=== PATIENT | male | born 1960 | race Two or more races ===

== ENCOUNTER → 2018-11-04 | Day surgery (SDC) | payer OTHER ==
[~2018-11-04] MED LIST: CYCL5TAB14 PO; DIAZ-351 PO; HYDR-4383 PO; IBUP-1984 PO; METH4TAB81 PO; OXYC-134 PO; VIG0.5OS LEFTEYE; gadopentetate dimeglumine 5 mmol/10ml vial IV ONE; iohexol 300 MG/1 ML 10ml vial ONE
== END | disposition home or self-care (01) ==
LOC: RAD 09:51
PROVIDERS: ATTEND Orthopaedic Surgery
DX: S46.012A Strain of muscle(s) and tendon(s) of the rotator cuff of left shoulder, initial encounter (principal); X58.XXXA Exposure to other specified factors, initial encounter; Y93.89 Activity, other specified; Y92.89 Other specified places as the place of occurrence of the external cause; Y99.8 Other external cause status
CPT/HCPCS: 23350; 73222; A9579; Q9967

== ENCOUNTER 2019-03-16 22:22 | Emergency (ER) | payer MEDICAID, OTHER ==
[~2019-03-16] VITALS: Ht 167.6 cm; Wt 81.8 kg
[~2019-03-16 22:22] MED LIST changes: -IBUP-1984 PO; -VIG0.5OS LEFTEYE; -gadopentetate dimeglumine 5 mmol/10ml vial IV ONE; -iohexol 300 MG/1 ML 10ml vial ONE
[2019-03-16 22:54] LABS: BASOPHILS # (AUTO) 0.1 X10'3 (0-0.2); BASOPHILS % (AUTO) 0.8 % (0-1); EOSINOPHILS # (AUTO) 0.6 X10'3 (0-0.9); EOSINOPHILS % (AUTO) 4.2 % (0-6); HEMATOCRIT 45.6 % (42.0-52.0); HEMOGLOBIN 15.2 g/dl (14.0-17.9); LYMPHOCYTES # (AUTO) 3.3 X10'3 (1.1-4.8); LYMPHOCYTES % (AUTO) 23.1 % (21-51); MEAN CORPUSCULAR HEMOGLOBIN 29.2 PG (27.0-31.0); MEAN CORPUSCULAR HGB CONC 33.4 g/dL (33.0-36.5); MEAN CORPUSCULAR VOLUME 87.4 FL (78-98); MEAN PLATELET VOLUME 7.8 FL (7.4-10.4); MONOCYTES # (AUTO) 1.1 X10'3 (0-0.9); MONOCYTES % (AUTO) 7.8 % (2-12); NEUTROPHILS # (AUTO) 9.1 X10'3 (1.8-7.7); NEUTROPHILS % (AUTO) 64.1 % (42-75); PLATELET COUNT 312 X10'3 (140-440); RED BLOOD COUNT 5.21 X10'6 (4.70-6.10); RED CELL DISTRIBUTION WIDTH 13.5 % (11.5-14.5); WHITE BLOOD COUNT 14.2 X10'3 (4.5-11.0)
[2019-03-16] MEDS ORDERED: normal saline 1000ML IV soln IVB ONE (23:00)
[2019-03-16] MEDS ORDERED: morphine 4 MG/ML inj SYRINge IV ONE (23:00)
[2019-03-16] MEDS ORDERED: ondansetron/PF 4mg/2ml inj IV ONE (23:00)
[2019-03-16 23:09] LABS: ALANINE AMINOTRANSFERASE 33 U/L (12-78); ALBUMIN 3.4 G/DL (3.4-5.0); ALKALINE PHOSPHATASE 62 IU/L (46-116); ANION GAP 9 (8-16); ASPARTATE AMINO TRANSFERASE 20 U/L (10-37); BILIRUBIN,TOTAL 0.5 MG/DL (0.1-1.0); BLOOD UREA NITROGEN 18 MG/DL (7-18); BUN/CREATININE RATIO 15.5 (5.4-32.0); CHLORIDE 102 MMOL/L (99-107); CREATININE 1.16 MG/DL (0.60-1.10); GLUCOSE 110 MG/DL (70-104); POTASSIUM 3.4 MMOL/L (3.5-5.1); SODIUM 137 MMOL/L (135-145); TOTAL CARBON DIOXIDE 26.1 MMOL/L (24-32); TOTAL PROTEIN 6.9 G/DL (6.4-8.2); eGFR 65 ML/MIN
[2019-03-16 23:26] VITALS: BP 120/76
[2019-03-17] MEDS ORDERED: CIPR-259 PO (00:05)
[2019-03-17] MEDS ORDERED: LOPE-144 PO (00:05)
[2019-03-17] MEDS ORDERED: METR500T PO (00:05)
[2019-03-17] MEDS ORDERED: HYDR-4353 PO (00:05)
[2019-03-18] MEDS ORDERED: HYDR-4353 PO (06:02)
[2019-03-18] MEDS ORDERED: FAMO-128 PO (06:02)
== END 2019-03-17 00:26 | disposition home or self-care (01) ==
LOC: ER 22:23
DX: K52.9 Noninfective gastroenteritis and colitis, unspecified (principal); I10 Essential (primary) hypertension; Z79.899 Other long term (current) drug therapy
CPT/HCPCS: 36415; 80053; 85025; 85610; 96374; 96375; 99283; J2270; J2405; J7030

== ENCOUNTER 2019-03-18 03:52 | Emergency (ER) | payer MEDICAID ==
[~2019-03-18] VITALS: Ht 167.6 cm; Wt 81.8 kg
[~2019-03-18 03:52] MED LIST changes: +CIPR-259 PO; +HYDR-4353 PO; +LOPE-144 PO; +METR500T PO
[2019-03-18] MEDS ORDERED: ondansetron/PF 4mg/2ml inj IV ONE (04:15)
[2019-03-18] MEDS ORDERED: normal saline 1000ML IV soln IVB ONE (04:15)
[2019-03-18] MEDS ORDERED: famotidine/PF 10 mg/ml inj IV ONE (04:15)
[2019-03-18] MEDS ORDERED: morphine 4 MG/ML inj SYRINge IV ONE (04:15)
[2019-03-18] MEDS ORDERED: iohexol 300mg/ml 100ml inj. ONE (04:19)
[2019-03-18 04:50] LABS: BASOPHILS # (AUTO) 0.1 X10'3 (0-0.2); BASOPHILS % (AUTO) 0.8 % (0-1); EOSINOPHILS # (AUTO) 0.5 X10'3 (0-0.9); EOSINOPHILS % (AUTO) 4.4 % (0-6); HEMATOCRIT 41.5 % (42.0-52.0); HEMOGLOBIN 13.9 g/dl (14.0-17.9); LYMPHOCYTES % (AUTO) 25.2 % (21-51); MEAN CORPUSCULAR HEMOGLOBIN 29.3 PG (27.0-31.0); MEAN CORPUSCULAR HGB CONC 33.4 g/dL (33.0-36.5); MEAN CORPUSCULAR VOLUME 87.7 FL (78-98); MEAN PLATELET VOLUME 8.4 FL (7.4-10.4); MONOCYTES % (AUTO) 8.8 % (2-12); NEUTROPHILS # (AUTO) 7.1 X10'3 (1.8-7.7); NEUTROPHILS % (AUTO) 60.8 % (42-75); PLATELET COUNT 257 X10'3 (140-440); RED BLOOD COUNT 4.73 X10'6 (4.70-6.10); RED CELL DISTRIBUTION WIDTH 13.6 % (11.5-14.5); WHITE BLOOD COUNT 11.7 X10'3 (4.5-11.0)
[2019-03-18 04:56] LABS: ALANINE AMINOTRANSFERASE 30 U/L (12-78); ALBUMIN 3.1 G/DL (3.4-5.0); ALKALINE PHOSPHATASE 58 IU/L (46-116); ANION GAP 7 (8-16); ASPARTATE AMINO TRANSFERASE 17 U/L (10-37); BILIRUBIN,TOTAL 0.4 MG/DL (0.1-1.0); BLOOD UREA NITROGEN 19 MG/DL (7-18); BUN/CREATININE RATIO 17.4 (5.4-32.0); CALCIUM 8.7 MG/DL (8.5-10.1); CHLORIDE 104 MMOL/L (99-107); CREATININE 1.09 MG/DL (0.60-1.10); GLUCOSE 119 MG/DL (70-104); LIPASE 274 U/L (73-393); PARTIAL THROMBOPLASTIN TIME 29 SECONDS (22-32); POTASSIUM 3.6 MMOL/L (3.5-5.1); SODIUM 140 MMOL/L (135-145); TOTAL CARBON DIOXIDE 28.7 MMOL/L (24-32); TOTAL PROTEIN 6.3 G/DL (6.4-8.2); eGFR 70 ML/MIN
[2019-03-18] MEDS ORDERED: FAMO-128 PO (06:02)
[2019-03-18] MEDS ORDERED: HYDR-4353 PO (06:02)
[2019-03-18 06:20] VITALS: BP 113/79
== END 2019-03-18 06:22 | disposition home or self-care (01) ==
LOC: ER 03:52
DX: K57.32 Diverticulitis of large intestine without perforation or abscess without bleeding (principal); I10 Essential (primary) hypertension; Z79.899 Other long term (current) drug therapy
CPT/HCPCS: 36415; 74177; 76700; 80053; 83690; 84484; 85025; 85610; 85730; 93005; 96374; 96375; 99284; J2270; J2405; J3490; J7030; Q9967; 96361

== ENCOUNTER 2019-05-26 19:21 | Emergency (ER) | payer MEDICAID ==
[~2019-05-26] VITALS: Ht 167.6 cm; Wt 82.7 kg
[~2019-05-26 19:21] MED LIST changes: -CIPR-259 PO; +FAMO-128 PO; -HYDR-4353 PO; -METR500T PO
[2019-05-26 19:26] VITALS: BP 125/82
[2019-05-26 19:57] LABS: CLARITY,URINE CLEAR (Clear); COLOR,URINE YELLOW (Yellow); GLUCOSE, URINE NEGATIVE (Neg); KETONES,URINE NEGATIVE (Neg); LEUKOCYTE ESTERASE ,URINE NEGATIVE (Neg); NITRITES, URINE NEGATIVE (Neg); OCCULT BLOOD,URINE NEGATIVE (Neg); PROTEIN,URINE NEGATIVE (Neg); UROBILINOGEN,URINE 0.2 E.U/dL (0.2-1.0)
[2019-05-26 20:17] LABS: UA COLLECTION TYPE CLN CATCH MIDSTREAM
== END 2019-05-26 21:26 | disposition left against medical advice (07) ==
LOC: ER 19:22
DX: Z53.21 Procedure and treatment not carried out due to patient leaving prior to being seen by health care provider (principal)
CPT/HCPCS: 81003; 99283

== ENCOUNTER 2024-07-21 05:03 | Emergency (ER) | payer MEDICAID ==
[~2024-07-21] VITALS: Ht 167.6 cm; Wt 83.5 kg
[2024-07-21 05:26] VITALS: TEMP 97.3
[2024-07-21] MEDS: ketorolac trometh 15mg/ml vial 15 MG/ML ML IM ONE (06:58)
[2024-07-21] MEDS: HYDROcodone/acetaminophen 5mg/325mg tablet PO ONE (06:58)
[2024-07-21] MEDS ORDERED: DICL50TA8 PO (07:09)
[2024-07-21] MEDS ORDERED: HYDR-3965 PO (07:09)
[2024-07-21 07:22] VITALS: BP 136/85; PULSE 65; RESP 15; O2SAT 97
== END 2024-07-21 07:24 | disposition home or self-care (01) ==
LOC: ER 05:03
DX: M76.52 Patellar tendinitis, left knee (principal); I10 Essential (primary) hypertension; F17.200 Nicotine dependence, unspecified, uncomplicated
CPT/HCPCS: 73564; 96372; 99284; J1885